=== PATIENT | female | born 1945 | race Caucasian/White ===

== ENCOUNTER 2019-07-31 09:38 | Emergency (ER) | payer MEDICARE, OTHER ==
[2019-07-31] MEDS ORDERED: Acetaminophen/HYDROcodone 325-5 MG Tab PO ONE ×2 (09:39→10:22)
[2019-07-31 10:02] VITALS: BP 120/68
--- NOTE | 2019-07-31 10:20 | EDM.PDOC ---
ED HPI GENERAL MEDICAL PROBLEM - General Chief Complaint: Lower Extremity Injury/Pain Stated Complaint: left hip and leg pain Time Seen by Provider: 07/31/19 09:48 Source of Information: Reports: Patient History Limitations: Reports: No Limitations - History of Present Illness INITIAL COMMENTS - FREE TEXT/NARRATIVE: This patient is a 74 year old female that presents to the ER. Patient reports for the last 1 1/2 weeks having lower back pain and left hip without injury. Patient reports that she went and saw a chiropractor for her lower back pain 3xs and it helped some. Patient reports seeing her PCP recently also, did not tell him she had lower back pain, but a UTI. She reports she was put on abx. She also states that on she was given an injection steroid to the left hip for her UTI. She reports that after the injection she continues to have pain to the left hip. She reports that her back pain is better. She reports that her left hip pain feels in the joint of the hip. The patient denies garcia, dizziness, n, v, d, f, redness to area, swelling to area, numbness/tingling, urinary/bowel incontinence, saddle parathesia. She is ambulatory in the department. No leg weaknesses. Pulses +2, cap refill < 2 sec, sensory/motor function intact. Neurovascular intact. No evidence of lumbar hematoma, or spinal /hip/thigh abscess from injection. Onset Date: 07/20/19 Duration: Week(s): (11/30) Location: Reports: Lower Extremity, Left Front/Back Body Image: 1 - pain, mildly tender. No redness, no heat, no swelling, no abscess or hematoma felt on deep palpation of exam. Quality: Reports: Ache Severity: Moderate Improves with: Reports: Rest Worsens with: Reports: Movement Associated Symptoms: Denies: Confusion, Chest Pain, Cough, cough w sputum, Diaphoresis, Fever/Chills, Headaches, Loss of Appetite, Malaise, Nausea/Vomiting , Rash, Seizure, Shortness of Breath, Syncope, Weakness Left Hip Pain Score (Numeric/FACES): 6 - Related Data Allergies Allergy/AdvReac Type Severity Reaction Status Date / Time No Known Allergies Allergy Verified 07/31/19 10:02 Home Meds: Home Meds Atenolol 25 mg PO BEDTIME 04/17/15 [History] Atenolol [Tenormin] 50 mg PO DAILY 04/17/15 [History] Cholecalciferol (Vitamin D3) [Vitamin D] 10,000 units PO DAILY 04/17/15 [History ] Cholestyramine/Aspartame [Cholestyramine Light] 1 scoop PO DAILY 04/17/15 [ History] Iron,Carbonyl/Vit C/Vit B12/Fa [Iron 100 Plus Tablet] 1 tab PO DAILY 04/17/15 [ History] Magnesium 500 mg PO BID 04/17/15 [History] Pantoprazole Sodium 40 mg PO DAILY 04/17/15 [History] Potassium Chloride 20 meq PO DAILY 04/17/15 [History] Simvastatin 20 mg PO DAILY 04/17/15 [History] Triamterene/Hydrochlorothiazid [Triamterene-HCTZ 75-50 MG] 0.5 tab PO DAILY [History] amLODIPine Besylate [Amlodipine Besylate] 10 mg PO DAILY 04/17/15 [History] Alendronate Sodium 70 mg PO Q7D 07/31/19 [History] Apixaban [Eliquis] 5 mg PO BID 07/31/19 [History] Calcium Carb & Citrate/Vit D3 [Citracal + D ER] 1 each PO DAILY 07/31/19 [ History] Vitamin B Complex 1 tab PO DAILY 07/31/19 [History] Review of Systems - Review of Systems Review Of Systems: See Below Constitutional: Reports: No Symptoms Eyes: Reports: No Symptoms Ears: Reports: No Symptoms Nose: Reports: No Symptoms Mouth/Throat: Reports: No Symptoms Respiratory: Reports: No Symptoms Cardiovascular: Reports: No Symptoms. Denies: Edema GI/Abdominal: Reports: No Symptoms. Denies: Abdominal Pain, Diarrhea, Nausea, Vomiting Genitourinary: Reports: No Symptoms. Denies: Dysuria, Hematuria, Incontinence, Painful Urination Musculoskeletal: Reports: Back Pain, Leg Pain (left hip/buttock), Joint Pain ( left hip) Skin: Reports: No Symptoms. Denies: Erythema Neurological: Reports: No Symptoms. Denies: Numbness, Tingling, Difficulty Walking, Weakness, Gait Disturbance Psychiatric: Reports: No Symptoms ED EXAM, GENERAL - Physical Exam Exam: See Below Exam Limited By: No Limitations General Appearance: Alert, WD/WN, No Apparent Distress Eye Exam: Bilateral Eye: Normal Inspection, PERRL Ears: Normal External Exam, Normal Canal, Hearing Grossly Normal, Normal TMs Ear Exam: Bilateral Ear: Auricle Normal, Canal Normal, TM normal Nose: Normal Inspection, Normal Mucosa, No Blood Throat/Mouth: Normal Inspection, Normal Lips, Normal Teeth, Normal Gums, Normal Oropharynx, Normal Voice, No Airway Compromise Head: Atraumatic, Normocephalic Neck: Normal Inspection, Supple, Non-Tender, Full Range of Motion Respiratory/Chest: No Respiratory Distress, Lungs Clear, Normal Breath Sounds, No Accessory Muscle Use Cardiovascular: Normal Peripheral Pulses, Regular Rate, Rhythm, No Edema, No Gallop, No JVD, No Murmur, No Rub Peripheral Pulses: 2+: Femoral (L), Femoral (R), Popliteal (L), Popliteal (R), Posterior Tibial (L), Posterior Tibial (R), Dorsalis Pedis (L), Dorsalis Pedis ( R) GI/Abdominal: Normal Bowel Sounds, Soft, Non-Tender, No Organomegaly, No Distention, No Abnormal Bruit, No Mass, Pelvis Stable (Female) Exam: Deferred Rectal (Female) Exam: Deferred Back Exam: Normal Inspection, Full Range of Motion, Paraspinal Tenderness (left lower into buttock.). No: CVA Tenderness (L), CVA Tenderness (R), Decreased Range of Motion, Muscle Spasm, Vertebral Tenderness Extremities: Normal Inspection, Normal Range of Motion, No Pedal Edema, Normal Capillary Refill, Leg Pain (left posterior buttock. No other leg pain/ tenderness. No extremity swelling, edema, redness, heat. ) Neurological: Alert, Oriented, CN II-XII Intact, Normal Cognition, Normal Gait, Normal Reflexes, No Motor/Sensory Deficits Psychiatric: Normal Affect, Normal Mood Skin Exam: Warm, Dry, Intact, Normal Color, No Rash Lymphatic: No Adenopathy Course - Vital Signs Last Recorded V/S: Last Vital Signs Temp 96.6 F 07/31/19 09:40 Pulse 72 07/31/19 09:40 Resp 16 07/31/19 09:40 BP 120/68 07/31/19 09:40 Pulse Ox 97 07/31/19 09:40 - Orders/Labs/Meds Orders: Active Orders 24 hr Category Date Time Status Hip Min 2V or 3V w Pelvis Lt [CR] Stat Exams 07/31/19 09:42 Ordered Meds: Medications Discontinued Medications Generic Name Dose Route Start Last Admin Trade Name Jaqui PRN Reason Stop Dose Admin Hydrocodone Bitart/Acetaminophen 1 tab 07/31/19 10:22 07/31/19 10:26 [place] 325-5 Mg PO 07/31/19 10:23 1 tab ONETIME ONE Administration Hydrocodone Bitart/Acetaminophen 2 packet 07/31/19 10:22 07/31/19 10:27 Take Home: Acetaminophen/Hydrocod, 2 Tab Pack PO 07/31/19 10:23 2 packet ONETIME ONE Administration Departure - Departure Time of Disposition: 10:18 Disposition: Home, Self-Care 01 Condition: Fair Clinical Impression: Left hip pain - Discharge Information *PRESCRIPTION DRUG MONITORING PROGRAM REVIEWED*: No *COPY OF PRESCRIPTION DRUG MONITORING REPORT IN PATIENT STEVE: No Instructions: Hip Pain Forms: ED Department Discharge Additional Instructions: Followup with your primary care provider Return to the ER for worsening of condition or any emergent concerns such as fever, not able to move leg, incontinent of urine or bowel or other concerns Warm compress to area [place] 5/325mg 1-2 pills every 4-6 hours as needed for pain #15 no refill #4 take home - My Orders Last 24 Hours: My Active Orders 07/31/19 09:42 Hip Min 2V or 3V w Pelvis Lt [CR] Stat - Assessment/Plan Last 24 Hours: My Active Orders 07/31/19 09:42 Hip Min 2V or 3V w Pelvis Lt [CR] Stat Plan: PLEASE SEE RN NOTE FOR PFSH.
[2019-07-31] MEDS ORDERED: Take Home: Acetaminophen/HYDROcodone 325-5 MG, 2 Tab Pack PO ONE (10:22)
== END 2019-07-31 10:40 | disposition home or self-care (01) ==
LOC: CC.ED 09:38
DX: M25.552 Pain in left hip (principal); Z79.899 Other long term (current) drug therapy
CPT/HCPCS: 99283-25; A9270-GY